=== PATIENT | female | born 1970 | race African-American/Black ===

== ENCOUNTER 2022-12-13 10:25 | Emergency (ER) | payer OTHER, MEDICARE ==
[2022-12-13 11:07] LABS: #Monocytes 0.5 10x3/uL (0.0-1.1); #Neutrophils 6.5 10x3/uL (1.5-8.4); %Basophils 0.3 % (0.0-2.0); %Eosinophils 0.4 % (0.0-6.0); %Monocytes 6.1 % (0.0-10.0); %Neutrophils 84.8 % (40.0-75.0); Hematocrit 32.1 % (34.9-44.5); Hemoglobin 10.8 g/dL (12.0-15.5); Mean Corpuscular HGB CONC 33.6 g/dL (32.0-36.0); Mean Corpuscular Volume 86.1 fl (81.6-98.3); Mean Platelet Volume 10.4 fl (7.4-10.4); Platelet Count 236 10x3/uL (150-450); Red Blood Cell (RBC) Count 3.73 10x6/uL (3.90-5.03); White Blood Cell (WBC) Count 7.7 10x3/uL (3.5-10.5)
[2022-12-13] MEDS ORDERED: Ondansetron PF 4 MG/2 ML Vial ONE (11:33)
[2022-12-13] MEDS ORDERED: Ketorolac Tromethamine 30 MG/ML VIAL ONE (11:33)
[2022-12-13 11:37] LABS: ALT (SGPT) 18 U/L (8-55); AST (SGOT) 20 U/L (5-34); Albumin 3.7 g/dL (3.5-5.0); Alkaline Phosphatase 87 U/L (40-110); Anion Gap 13 mmol/L (10-20); BUN (Urea Nitrogen) 13 mg/dL (9.8-20.1); Bilirubin, Total 0.5 mg/dL (0.2-1.2); Calc. Creatinine Clearance 0 mL/min (70-130); Calcium 8.7 mg/dL (7.8-10.44); Carbon Dioxide 24 mmol/L (22-29); Chloride 106 mmol/L (98-107); Estimated GFR 48; Globulin 3.1 g/dL (2.4-3.5); Glucose 98 mg/dL (70-105); Lipase 40 U/L (8-78); Protein, Total 6.8 g/dL (6.0-8.3); Sodium 140 mmol/L (136-145)
[2022-12-13 11:55] LABS: Bilirubin Neg (Negative); Blood, Urine Negative (Negative); Clarity Slightly Cloudy (Clear); Glucose, Urine (Dipstick) Normal (Negative); Ketone, Urine Negative (Negative); Leukocyte Negative (Negative); Nitrite Negative (Negative); Protein, Urine (Dipstick) 100 mg/dl (Neg-Trace); Urobilinogen Normal mg/dL (Less than 2)
[2022-12-13 12:09] LABS: SARS-CoV-2 NAA Rapid Test DETECTED (NotDetected)
[2022-12-13 12:19] LABS: Bacteria/HPF 3+ HPF (None Seen); CAUTI Indications for Culture Alt mental st,lethar; RBC/HPF None Seen HPF (0-3)
[2022-12-13 12:20] LABS: Urine Culture Reflex No No
[2022-12-13] MEDS ORDERED: Potassium Chloride 20 MEQ TAB ONE (13:19)
[2022-12-13 14:08] LABS: Lactic Acid 1.1 mmol/L (0.5-2.2)
== END 2022-12-13 14:50 | disposition home or self-care (01) ==
LOC: CSHERS 10:25
DX: U07.1 COVID-19 (principal); R11.2 Nausea with vomiting, unspecified; E11.9 Type 2 diabetes mellitus without complications; E78.00 Pure hypercholesterolemia, unspecified; I10 Essential (primary) hypertension; Z87.891 Personal history of nicotine dependence
CPT/HCPCS: 36415; 71045; 71046; 80053; 81001; 82550; 83605; 83690; 85025; 87040; 93005; 96361; 96374; 96375; J1885; J2405

== ENCOUNTER 2023-03-28 17:49 | Observation (INO) | payer MEDICARE ==
[2023-03-28] MEDS ORDERED: HYDROcodone/Acetaminophen 10/325 mg Tablet PO PRN (20:54)
[2023-03-28] MEDS ORDERED: Atorvastatin Calcium 20 MG TAB PO SCH (21:00)
[2023-03-28] MEDS ORDERED: Gabapentin 400 MG CAP PO SCH (21:00)
[2023-03-28] MEDS ORDERED: Potassium Chloride 20 MEQ TAB PO SCH (21:00)
[2023-03-28] MEDS ORDERED: Amitriptyline HCl 10 MG TAB PO SCH (21:00)
[2023-03-28 21:10] VITALS: BMI 31.8
[2023-03-28] MEDS: hydrALAZINE 25 MG TAB PO SCH (21:45)
[2023-03-28] MEDS: Nitroglycerin 2% Ointment 1 INCH/1 GM Packet TOP SCH (21:48)
[2023-03-28] MEDS: cloNIDine 0.1 MG TAB PO SCH (21:48)
[2023-03-28 22:10] LABS: Magnesium 1.8 mg/dL (1.6-2.6)
[2023-03-28 22:17] LABS: Troponin I Less than 0.010 ng/mL (< 0.028)
[2023-03-29 00:45] LABS: Troponin I Less than 0.010 ng/mL (< 0.028)
[2023-03-29 04:47] LABS: #Eosinphils 0.1 10x3/uL (0.0-0.5); #Monocytes 0.7 10x3/uL (0.0-1.1); #Neutrophils 4.6 10x3/uL (1.5-8.4); %Basophils 0.2 % (0.0-2.0); %Eosinophils 1.7 % (0.0-6.0); %Lymphocytes 32.1 % (18.0-47.0); %Monocytes 8.9 % (0.0-10.0); %Neutrophils 56.9 % (40.0-75.0); Hematocrit 31.1 % (34.9-44.5); Hemoglobin 10.5 g/dL (12.0-15.5); Mean Corpuscular HGB CONC 33.8 g/dL (32.0-36.0); Mean Corpuscular Hemoglobin 29.5 pg (27.0-33.0); Mean Corpuscular Volume 87.4 fl (81.6-98.3); Mean Platelet Volume 10.9 fl (7.4-10.4); Platelet Count 292 10x3/uL (150-450); RBC Distribution Width 13.2 % (11.5-14.5); Red Blood Cell (RBC) Count 3.56 10x6/uL (3.90-5.03)
[2023-03-29 05:21] LABS: Anion Gap 15 mmol/L (10-20); BUN (Urea Nitrogen) 15 mg/dL (9.8-20.1); Calc. Creatinine Clearance 66 mL/min (70-130); Calcium 8.9 mg/dL (7.8-10.44); Carbon Dioxide 20 mmol/L (22-29); Chloride 107 mmol/L (98-107); Estimated GFR 48; Glucose 172 mg/dL (70-105); Potassium 3.6 mmol/L (3.5-5.1); Sodium 138 mmol/L (136-145)
[2023-03-29 05:46] LABS: Cardiac Risk 3.4 (Less than 4.5); Cholesterol 141 mg/dl (< 200 Desired); HDL Cholesterol 42 mg/dL (>60 Neg Risk); LDL Cholesterol, Calculated 61 mg/dL; Triglycerides 188 mg/dL (Less than 150)
[2023-03-29] MEDS: Nitroglycerin 2% Ointment 1 INCH/1 GM Packet TOP SCH (06:20)
[2023-03-29] MEDS ORDERED: glipiZIDE 5 MG TAB PO SCH (07:30)
[2023-03-29] MEDS: cloNIDine 0.1 MG TAB PO SCH (08:48)
[2023-03-29] MEDS: hydrALAZINE 25 MG TAB PO SCH (08:49)
[2023-03-29] MEDS ORDERED: Potassium Chloride 20 MEQ TAB PO SCH (09:00)
[2023-03-29] MEDS ORDERED: Aspirin 81 mg Enteric Coated Tablet PO SCH (09:00)
[2023-03-29] MEDS ORDERED: Venlafaxine HCl 37.5 MG TAB PO SCH (09:00)
[2023-03-29] MEDS ORDERED: hydrOXYzine 25 MG TAB PO SCH (12:30)
[2023-03-29 13:00] VITALS: BP 128/79; TEMP 98.4
[2023-03-29] MEDS ORDERED: Atorvastatin Calcium 40 MG TAB PO SCH (21:00)
[2023-04-04] MEDS ORDERED: Semaglutide [Ozempic] 2 MG/0.75 ML Pen.Injctr SC SCH (09:00)
== END 2023-03-29 13:45 | disposition home or self-care (01) ==
LOC: CSHTELE 19:50
PROVIDERS: ADMIT Hospitalist; ATTEND Internal Medicine
PROC: B246ZZ4 Ultrasonography of Right and Left Heart, Transesophageal (ICD-10-PCS; principal; 2023-03-29)
DX: I12.9 Hypertensive chronic kidney disease with stage 1 through stage 4 chronic kidney disease, or unspecified chronic kidney disease (principal); E11.22 Type 2 diabetes mellitus with diabetic chronic kidney disease; E11.40 Type 2 diabetes mellitus with diabetic neuropathy, unspecified; E87.6 Hypokalemia; N18.30 Chronic kidney disease, stage 3 unspecified; F32.A Depression, unspecified; E78.5 Hyperlipidemia, unspecified; G89.29 Other chronic pain; M54.9 Dorsalgia, unspecified; F41.9 Anxiety disorder, unspecified; Z87.891 Personal history of nicotine dependence; Z79.82 Long term (current) use of aspirin; Z79.84 Long term (current) use of oral hypoglycemic drugs; Z79.899 Other long term (current) drug therapy
CPT/HCPCS: 80048; 80061; 83735; 84484 ×2; 85025; 93005; 93306; 96372; G0378 ×2; 36415; 93010; J1650

== ENCOUNTER 2023-12-04 14:46 | Inpatient (IN) | payer MEDICARE ==
[~2023-12-04 14:46] MED LIST: Iopamidol 370 76% 100 ML VIAL ONE
[2023-12-04] MEDS ORDERED: Acetaminophen 500 MG TAB ONE (15:51)
[2023-12-04] MEDS ORDERED: diphenhydrAMINE 50 MG/ML VIAL ONE (15:51)
[2023-12-04] MEDS ORDERED: Prochlorperazine 10 MG/2 ML VIAL ONE (15:52)
[2023-12-04 16:19] LABS: #Basophils 0.02 10x3/uL (0.0-0.2); #Eosinphils 0.07 10x3/uL (0.0-0.5); #Monocytes 0.73 10x3/uL (0.0-1.1); #Neutrophils 4.22 10x3/uL (1.5-8.4); %Basophils 0.4 % (0.0-2.0); %Eosinophils 1.3 % (0.0-6.0); %Lymphocytes 8.8 % (18.0-47.0); %Monocytes 13.2 % (0.0-10.0); %Neutrophils 75.9 % (40.0-75.0); Hematocrit 27.6 % (34.9-44.5); Hemoglobin 9.3 g/dL (12.0-15.5); Mean Corpuscular HGB CONC 33.7 g/dL (32.0-36.0); Mean Corpuscular Hemoglobin 29.7 pg (27.0-33.0); Mean Corpuscular Volume 88.2 fL (81.6-98.3); Mean Platelet Volume 10.4 fL (7.4-10.4); Platelet Count 249 10x3/uL (150-450); RBC Distribution Width 14.1 % (11.5-14.5); Red Blood Cell (RBC) Count 3.13 10x6/uL (3.90-5.03); White Blood Cell (WBC) Count 5.6 10x3/uL (3.5-10.5)
[2023-12-04 16:43] LABS: Bilirubin Neg (Negative); Blood, Urine 10 (Negative); Clarity Clear (Clear); Glucose, Urine (Dipstick) Normal (Negative); Ketone, Urine Negative (Negative); Leukocyte Negative (Negative); Nitrite Negative (Negative); Protein, Urine (Dipstick) 100 mg/dl (Neg-Trace); Specific Gravity, Urine 1.005 (1.005-1.030); Urobilinogen Normal mg/dL (Less than 2)
[2023-12-04 16:49] LABS: INR-International Normal Ratio 1.1; PTT 26.5 sec (22.0-33.0); Prothrombin Time 11.5 sec (9.5-12.1)
[2023-12-04 16:50] LABS: ALT (SGPT) 12 U/L (8-55); AST (SGOT) 16 U/L (5-34); Albumin 3.5 g/dL (3.5-5.0); Alkaline Phosphatase 95 U/L (40-110); Anion Gap 14 mmol/L (10-20); BUN (Urea Nitrogen) 13 mg/dL (9.8-20.1); Bilirubin, Total 0.4 mg/dL (0.2-1.2); Calc. Creatinine Clearance 0 mL/min (70-130); Calcium 9.4 mg/dL (7.8-10.44); Carbon Dioxide 21 mmol/L (22-29); Chloride 102 mmol/L (98-107); Estimated GFR 42; Globulin 3.6 g/dL (2.4-3.5); Glucose 110 mg/dL (70-105); Lipase 23 U/L (8-78); Magnesium 1.6 mg/dL (1.6-2.6); Potassium 3.2 mmol/L (3.5-5.1); Protein, Total 7.1 g/dL (6.0-8.3); Sodium 134 mmol/L (136-145)
[2023-12-04 16:52] LABS: Troponin I Less than 0.010 ng/mL (< 0.028)
[2023-12-04 17:03] LABS: Bacteria/HPF Rare-Few HPF (None Seen); CAUTI Indications for Culture Pelvic or flank pain; RBC/HPF 0-3 HPF (0-3); Squamous Epithelial 0-3 HPF (0-3); WBC/HPF 0-3 HPF (0-3)
[2023-12-04 17:05] LABS: Urine Culture Reflex No No
[2023-12-04] MEDS ORDERED: cefTRIAXone (ROCEPHIN) 2 GM VIAL ONE (17:36)
[2023-12-04] MEDS ORDERED: Ondansetron ODT 4 MG TAB PO PRN (19:31)
[2023-12-04] MEDS ORDERED: Acetaminophen 650 MG Suppository PR PRN (19:31)
[2023-12-04] MEDS ORDERED: Ondansetron PF 4 MG/2 ML Vial IVP PRN (19:31)
[2023-12-04] MEDS ORDERED: Dextrose 50% Abboject 50 ML SYRINGE SLOW IVP PRN (19:48)
[2023-12-04] MEDS ORDERED: Dextrose 5% in Water 1,000 ML IV PRN (19:48)
[2023-12-04] MEDS ORDERED: Glucagon 1 MG/ML KIT IM PRN (19:48)
[2023-12-04 19:51] LABS: Lactic Acid 0.9 mmol/L (0.5-2.2)
[2023-12-04] MEDS: VANCOMYCIN 2 GRAM/400 ML BAG 2 GM in Premix 1 BAG IVPB SCH (21:31)
[2023-12-04] MEDS ORDERED: hydrALAZINE 25 MG TAB ONE (21:34)
[2023-12-04] MEDS ORDERED: cloNIDine 0.1 MG TAB ONE (21:34)
[2023-12-04] MEDS ORDERED: Potassium Chloride 20 MEQ TAB ONE (21:35)
[2023-12-04] MEDS: Sodium Chloride 0.9% 1,000 ML IV SCH (21:47)
[2023-12-04] MEDS: Prochlorperazine Edisylate 10 MG, Admixture Fee 1 EACH in Sodium Chloride 0.9% 50 ML IVPB SCH (21:48)
[2023-12-04] MEDS: Heparin 5,000 UNITS/ML VIAL SC SCH (21:50)
[2023-12-04] MEDS: Potassium Chloride 20 MEQ TAB PO SCH (21:51)
[2023-12-04] MEDS: hydrALAZINE 25 MG TAB PO SCH (21:52)
[2023-12-04] MEDS: Atorvastatin Calcium 20 MG TAB PO SCH (21:52)
[2023-12-04] MEDS: cloNIDine 0.1 MG TAB PO SCH (21:52)
[2023-12-05] MEDS: diphenhydrAMINE 50 MG/ML VIAL IVP SCH (01:00)
[2023-12-05] MEDS ORDERED: diphenhydrAMINE 50 MG/ML VIAL ONE ×2 (01:12→03:27)
[2023-12-05] MEDS ORDERED: Acetaminophen 325 MG TAB ONE (01:12)
[2023-12-05] MEDS: Acetaminophen 325 MG TAB PO PRN (01:15)
[2023-12-05] MEDS ORDERED: Morphine 2 MG/ML VIAL ONE (02:28)
[2023-12-05] MEDS: Morphine 2 MG/ML VIAL SLOW IVP SCH (02:30)
[2023-12-05 03:25] LABS: #Basophils 0.02 10x3/uL (0.0-0.2); #Eosinphils 0.01 10x3/uL (0.0-0.5); #Monocytes 0.85 10x3/uL (0.0-1.1); #Neutrophils 2.81 10x3/uL (1.5-8.4); %Basophils 0.5 % (0.0-2.0); %Eosinophils 0.2 % (0.0-6.0); %Lymphocytes 14.4 % (18.0-47.0); %Monocytes 19.7 % (0.0-10.0); Hemoglobin 8.7 g/dL (12.0-15.5); Mean Corpuscular HGB CONC 33.5 g/dL (32.0-36.0); Mean Corpuscular Hemoglobin 29.6 pg (27.0-33.0); Mean Corpuscular Volume 88.4 fL (81.6-98.3); Mean Platelet Volume 10.5 fL (7.4-10.4); Platelet Count 233 10x3/uL (150-450); RBC Distribution Width 14.6 % (11.5-14.5); Red Blood Cell (RBC) Count 2.94 10x6/uL (3.90-5.03); White Blood Cell (WBC) Count 4.3 10x3/uL (3.5-10.5)
[2023-12-05 03:42] LABS: Anion Gap 15 mmol/L (10-20); BUN (Urea Nitrogen) 12 mg/dL (9.8-20.1); Calc. Creatinine Clearance 0 mL/min (70-130); Calcium 8.7 mg/dL (7.8-10.44); Carbon Dioxide 19 mmol/L (22-29); Chloride 108 mmol/L (98-107); Estimated GFR 42; Glucose 111 mg/dL (70-105); Potassium 3.2 mmol/L (3.5-5.1); Sodium 139 mmol/L (136-145)
[2023-12-05] MEDS: Potassium Chloride 20 MEQ TAB PO SCH ×2 (09:00→10:50)
[2023-12-05] MEDS: Aspirin 81 mg Enteric Coated Tablet PO SCH (09:01)
[2023-12-05] MEDS: Venlafaxine HCl 37.5 MG TAB PO SCH (09:01)
[2023-12-05] MEDS ORDERED: Ketorolac Tromethamine 30 MG (1 mL) VIAL IVP PRN (12:08)
[2023-12-05] MEDS: Fioricet 325/50/40 mg Tablet PO PRN (13:00)
[2023-12-05 14:26] LABS: Amphetamine Not Detected (NotDetected); Barbiturates Screen Not Detected (NotDetected); Benzodiazepine Screen Not Detected (NotDetected); Cocaine Metabolite Screen Not Detected (NotDetected); Methadone Not Detected (NotDetected); Methamphetamine Not Detected (NotDetected); Opiate Screen Detected (NotDetected); Oxycodone Screen Not Detected (NotDetected); Phencyclidine (PCP) Not Detected (NotDetected); THC/Cannabinoid Screen Not Detected (NotDetected); Tricyclic Screen Not Detected (NotDetected)
[2023-12-05 16:31] LABS: Hemoglobin A1c 6.2 % (4.0-6.0)
[2023-12-05] MEDS: Vancomycin 2 GM in Sodium Chloride 0.9% 500 ML IVPB SCH (17:48)
[2023-12-05 18:41] VITALS: BMI 31.6
[2023-12-06 11:11] LABS: #Basophils 0.02 10x3/uL (0.0-0.2); #Eosinphils 0.03 10x3/uL (0.0-0.5); #Monocytes 0.58 10x3/uL (0.0-1.1); #Neutrophils 1.02 10x3/uL (1.5-8.4); %Basophils 0.5 % (0.0-2.0); %Eosinophils 0.7 % (0.0-6.0); %Lymphocytes 59.5 % (18.0-47.0); %Monocytes 14.3 % (0.0-10.0); Hematocrit 31.3 % (34.9-44.5); Hemoglobin 10.3 g/dL (12.0-15.5); Mean Corpuscular HGB CONC 32.9 g/dL (32.0-36.0); Mean Corpuscular Hemoglobin 29.3 pg (27.0-33.0); Mean Corpuscular Volume 88.9 fL (81.6-98.3); Mean Platelet Volume 10.6 fL (7.4-10.4); Platelet Count 259 10x3/uL (150-450); Red Blood Cell (RBC) Count 3.52 10x6/uL (3.90-5.03); White Blood Cell (WBC) Count 4.1 10x3/uL (3.5-10.5)
[2023-12-06 11:50] LABS: ALT (SGPT) 22 U/L (8-55); Albumin 3.2 g/dL (3.5-5.0); Alkaline Phosphatase 84 U/L (40-110); Anion Gap 14 mmol/L (10-20); BUN (Urea Nitrogen) 10 mg/dL (9.8-20.1); Bilirubin, Total 0.2 mg/dL (0.2-1.2); Calc. Creatinine Clearance 55 mL/min (70-130); Carbon Dioxide 20 mmol/L (22-29); Chloride 109 mmol/L (98-107); Estimated GFR 39; Globulin 4.2 g/dL (2.4-3.5); Glucose 157 mg/dL (70-105); Potassium 3.8 mmol/L (3.5-5.1); Protein, Total 7.4 g/dL (6.0-8.3); Sodium 139 mmol/L (136-145)
[2023-12-06 11:58] LABS: AST (SGOT) 46 U/L (5-34)
[2023-12-06 12:35] VITALS: BP 120/73; TEMP 98.7
[2023-12-06] MEDS: Insulin Lispro 100 UNIT/ML 10 ML VIAL SC PRN (12:42)
== END 2023-12-06 14:28 | disposition home or self-care (01) | DRG 103 ==
LOC: CSHERS 14:46 → CSHERHOLD 18:59 → CSHTELE 12-05 08:07
PROVIDERS: ADMIT Family Medicine; ATTEND Internal Medicine
DX: G43.909 Migraine, unspecified, not intractable, without status migrainosus (principal); N17.9 Acute kidney failure, unspecified; F32.A Depression, unspecified; E87.6 Hypokalemia; E78.00 Pure hypercholesterolemia, unspecified; I12.9 Hypertensive chronic kidney disease with stage 1 through stage 4 chronic kidney disease, or unspecified chronic kidney disease; R50.9 Fever, unspecified; E11.22 Type 2 diabetes mellitus with diabetic chronic kidney disease; Z98.891 History of uterine scar from previous surgery; Z87.891 Personal history of nicotine dependence; Z79.82 Long term (current) use of aspirin; Z79.899 Other long term (current) drug therapy; Z79.891 Long term (current) use of opiate analgesic; Z79.84 Long term (current) use of oral hypoglycemic drugs; N18.30 Chronic kidney disease, stage 3 unspecified
CPT/HCPCS: 36415; 36416; 70450; 70496; 70498; 70544; 70551; 71045; 80048; 80053; 80306; 81001; 81003; 82040; 82043; 82728; 83036; 83540; 83550; 83605; 83690; 83735; 83970; 84100; 84145; 84156; 84443; 84484; 85025; 85027; 85610; 85730; 86140; 87040; 96365; 96366; 96367; 96375; J0696; J0780; J1200; J1644; J2272; J3370; J7030; Q9967